=== PATIENT | female | born 1960 | race Caucasian/White ===

== ENCOUNTER 2024-10-05 09:13 | Day surgery (SDC) | payer BC ==
[2024-09-28 12:30] VITALS: BMI 20.5
[2024-10-05] MEDS ORDERED: BUPIVACAINE HCL/PF 2.5 MG/ML - 30 ML VIAL IJ ONE (10:56)
[2024-10-05] MEDS ORDERED: MIDAZOLAM HCL 2 MG/2 ML SINGLE DOSE VIAL ONE (12:57)
[2024-10-05] MEDS ORDERED: ROCURONIUM BROMIDE 50 MG/5 ML SYRINGE ONE (12:57)
[2024-10-05] MEDS ORDERED: PROPOFOL 20 ML ONE ×2 (12:57→16:37)
[2024-10-05] MEDS ORDERED: SUCCINYLCHOLINE CHLORIDE 200 MG/10 ML SYRINGE ONE (12:58)
[2024-10-05] MEDS ORDERED: HYDROmorphone HCL/PF 1 MG/ML VIAL ONE (16:08)
[2024-10-05] MEDS ORDERED: oxyCODONE HCL 5 MG TABLET PO PRN ×3 (16:21→17:26)
[2024-10-05] MEDS ORDERED: FENTANYL CITRATE/PF 50 MCG/ML VIAL ONE (17:10)
[2024-10-05] MEDS ORDERED: ONDANSETRON 4 MG/2 ML VIAL ONE ×2 (17:10→17:50)
[2024-10-05] MEDS ORDERED: ACETAMINOPHEN INJECTION 100 ML ONE (17:23)
[2024-10-05] MEDS ORDERED: ONDANSETRON 4 MG/2 ML VIAL IVPB PRN (17:26)
[2024-10-05] MEDS: ACETAMINOPHEN 1000 MG/100 ML BAG IVPB ONE (17:26)
[2024-10-05] MEDS ORDERED: LACTATED RINGERS SOLUTION 1,000 ML IV SCH (17:30)
[2024-10-05] MEDS: ONDANSETRON 4 MG/2 ML VIAL IVPUSH PRN (17:32)
[2024-10-05] MEDS: PROMETHAZINE HCL 25 MG/1 ML VIAL ONE (18:02)
[2024-10-05] MEDS ORDERED: PROMETHAZINE HCL 25 MG/1 ML VIAL IVPB PRN (18:15)
[2024-10-05 19:12] VITALS: RESP 18
[2024-10-05 19:14] VITALS: TEMP 97.8
[2024-10-05 19:28] VITALS: BP 121/68; PULSE 65
== END 2024-10-05 19:41 | disposition home or self-care (01) ==
LOC: FASU 09:13
PROVIDERS: ATTEND Plastic Surgery
PROC: 0HBV0ZZ Excision of Bilateral Breast, Open Approach (ICD-10-PCS; principal; 2024-10-05 13:38)
DX: N62 Hypertrophy of breast (principal); M54.2 Cervicalgia; L30.4 Erythema intertrigo
CPT/HCPCS: 88305-TC; 94760; J0131